=== PATIENT | male | born 1995 | race Caucasian/White ===

== ENCOUNTER 2019-07-13 18:17 | Emergency (ER) | payer BC, MEDICAID ==
[~2019-07-13] VITALS: Ht 167.6 cm; Wt 102.1 kg
[2019-07-13 18:21] VITALS: BP 146/84
--- NOTE | 2019-07-13 18:32 | NUR ---
WAIT AT LOBBY.
--- NOTE | 2019-07-13 20:36 | NUR ---
PT TAKEN TO US FROM LOBBY
--- NOTE | 2019-07-13 20:58 | NUR ---
PT RETURN FROM US TO BED 5
--- NOTE | 2019-07-13 21:00 | NUR ---
Dr. Pinzon examining patient.
--- NOTE | 2019-07-13 21:08 | NUR ---
23 Y/O MALE C/O TESTICULAR PAIN X 2 DAYS. PT STATES 10/10 INTERMITTENT SQUEEZING PAIN TO BILATERAL TESTICLES. PT STATES URINARY HESITENCY, BUT NO PAIN UPON URINATION. TESTICLES TENDER TO THE TOUCH. DENIES PENILE DISCHARGE. DENIES FEVER. PT SITTING ON BED POSITIONED FOR COMFORT. RR EVEN AND UNLABORED. VSS. GIRLFRIEND AT BEDSIDE. MEDHX: DENIES ALLERGIES: NKA
[2019-07-13 21:48] VITALS: BP 146/84
== END 2019-07-13 21:49 | disposition home or self-care (01) ==
LOC: MED 18:17
DX: N50.812 Left testicular pain (principal); N50.811 Right testicular pain
CPT/HCPCS: 76870; 99284; Q0092